=== PATIENT | male | born 1960 | race Caucasian/White ===

== ENCOUNTER 2019-01-22 16:34 | Emergency (ER) | payer MEDICAID, OTHER ==
[~2019-01-22] VITALS: Ht 182.9 cm; Wt 90.3 kg
[2019-01-22] MEDS ORDERED: ALPRAZOLAM TAB 0.5MG (17:00)
[2019-01-22] MEDS ORDERED: HYDROMORPHONE 1 MG/1 ML DISP.SYRIN ONE ×2 (17:16→18:51)
[2019-01-22] MEDS ORDERED: ONDANSETRON HCL/PF 4 MG/2 ML VIAL ONE (17:16)
[2019-01-22 17:22] LABS: BASOPHILS # (AUTO) 0.1 /CMM (0.0-0.2); BASOPHILS % (AUTO) 1.5 % (0.0-2.0); EOSINOPHILS % (AUTO) 1.2 % (0.0-6.0); HEMATOCRIT 42 % (39-51); HEMOGLOBIN 13.1 g/dL (13.5-17.5); LYMPHOCYTES # (AUTO) 2.3 /CMM (0.8-4.8); LYMPHOCYTES % (AUTO) 29.9 % (20.0-44.0); MEAN CORPUSCULAR HGB CONC 32 g/dl (31.0-36.0); MEAN CORPUSCULAR VOLUME 74 fL (80-96); MONOCYTES # (AUTO) 0.5 /CMM (0.1-1.30); MONOCYTES % (AUTO) 6.6 % (2.0-12.0); NEUTROPHILS # (AUTO) 4.8 /CMM (1.8-8.9); NEUTROPHILS % (AUTO) 60.8 % (43.0-81.0); PLATELET COUNT (AUTO) 246 /CMM (150-450); RED BLOOD CELL COUNT(AUTO) 5.63 MIL/uL (4.5-6.0); WHITE BLOOD COUNT (AUTO) 7.8 K/uL (4.3-11.0)
[2019-01-22 17:29] LABS: CALCIUM, SERUM 8.9 mg/dL (8.5-10.1); CREATININE 1.2 mg/dL (0.6-1.3); POTASSIUM 3.7 mmol/L (3.5-5.1)
[2019-01-22] MEDS ORDERED: IV NS 0.9% 1,000 ML BAG IV ONE (17:30)
[2019-01-22] MEDS ORDERED: IV D5/ 0.9% NACL 1,000 ML IV ONE (17:30)
[2019-01-22] MEDS ORDERED: HYDROMORPHONE INJ 2 MG/ML DISP.SYRIN IV ONE (17:30)
[2019-01-22] MEDS ORDERED: ONDANSETRON HCL/PF 4 MG/2 ML VIAL IVP ONE (17:30)
[2019-01-22 17:40] LABS: ALBUMIN 4.1 g/dL (3.4-5.0); BILIRUBIN,DIRECT 0.1 mg/dL (0.0-0.2); BILIRUBIN,TOTAL 0.6 mg/dL (0.2-1.0); TOTAL PROTEIN, SERUM 7.5 g/dL (6.4-8.2)
--- NOTE | 2019-01-22 17:46 | NUR ---
Pt c/o abdominal pain 05/22 non-radiating "I'm having a porphyria attack". PT AAO4, VSS. DENIES CP, SOB, DIZZINESS, N/V AT THIS TIME. PT SEEN & EVAL'D BY DON GARCIA. MEDICATED ORDERED, PT QUINN WELL. WILL CONT TO MONITOR.
[2019-01-22 18:03] LABS: MAGNESIUM 1.8 mg/dL (1.8-2.4)
--- NOTE | 2019-01-22 18:27 | NUR ---
PT REFUSED CXR, DON GARCIA AWARE.
[2019-01-22] MEDS ORDERED: Testosterone IM (18:33)
--- NOTE | 2019-01-22 18:56 | NUR ---
MEDICATED ORDERED, PT QUINN WELL. [facility]
[2019-01-22] MEDS ORDERED: MORPHINE SULFATE INJ 2 MG/ML DISP.SYRIN IV ONE (19:00)
[2019-01-22] MEDS ORDERED: HYDROMORPHONE INJ 0.5 MG/0.5 ML SYRINGE IV ONE (19:00)
--- NOTE | 2019-01-22 19:22 | NUR ---
PAGED EPIC (MEHRAN BARBOUR)
--- NOTE | 2019-01-22 19:54 | NUR ---
CALLED DR ESTEBAN MORRIS FOR CONSULT; NO ANSWER, LEFT VOICEMAIL.
[2019-01-22] MEDS ORDERED: KETOROLAC TROMETHAMINE INJ 30 MG/ML VIAL ONE (20:49)
[2019-01-22] MEDS ORDERED: KETOROLAC TROMETHAMINE INJ 30 MG/ML VIAL IV ONE (21:00)
[2019-01-22] MEDS ORDERED: IV NS 0.9% 1,000 ML IV PRN (21:59)
[2019-01-22] MEDS ORDERED: MAG HYDROX/AL HYDROX/SIMETH 30 ML UDC PO PRN (22:00)
[2019-01-22] MEDS ORDERED: HYDROCODONE/APAP 5/325MG 1 EACH TABLET PO PRN (22:00)
[2019-01-22] MEDS ORDERED: ONDANSETRON HCL/PF 4 MG/2 ML VIAL IVP PRN (22:00)
[2019-01-22] MEDS ORDERED: Z GUARD REMEDY 2 OZ OINT TP PRN (22:00)
[2019-01-22] MEDS ORDERED: MAGNESIUM HYDROXIDE 30 ML UDC PO PRN (22:00)
[2019-01-22] MEDS ORDERED: ACETAMINOPHEN 325 MG TABLET PO PRN (22:00)
[2019-01-22] MEDS ORDERED: MORPHINE SULFATE INJ 2 MG/ML DISP.SYRIN IV PRN (22:00)
[2019-01-22 22:08] VITALS: BP 127/89
--- NOTE | 2019-01-22 22:09 | NUR ---
PT ABD PAIN 10/20 & QUINN WELL. STS " I FEEL MUCH BETTER ". DENIES CP, SOB, DIZZINESS, N/V AT THIS TIME. WILL CONT TO MONITOR.
[2019-01-22 23:05] LABS: APPEARANCE,URINE Clear (CLEAR); BILIRUBIN,URINE Negative (NEGATIVE); BLOOD, URINE Trace-lysed Ery/uL (NEGATIVE); COLOR,URINE Yellow (YELLOW); KETONES,URINE 15 (NEGATIVE); LEUKOCYTE ESTERASE ,URINE Negative (NEGATIVE); NITRITE, URINE Negative (NEGATIVE); PROTEIN,URINE Negative (NEGATIVE); UGLUCOSE Negative (NEGATIVE); UROBILINOGEN,URINE 0.2 EU/dL (0.2)
[2019-01-22 23:21] LABS: BACTERIA,URINE Few /HPF (None Seen); SQUAMOUS EPITHELIAL CELL,UR Rare /HPF (None Seen)
--- NOTE | 2019-01-22 23:56 | NUR ---
Patient does not wish to proceed with medical care recommended by Dr. King. Patient given information related to possible complications, up to and including , which could occur as a result of leaving the hospital at this time. Patient verbalizes understanding of risks involved due to leaving against medical advice. Patient has signed AMA form.IV removed. Catheter intact and site benign. Pressure and 4x4 applied to site. No bleeding noted.
[2019-01-23] MEDS ORDERED: PANTOPRAZOLE 40 MG TABLET.DR PO SCH (07:30)
== END 2019-01-22 23:59 | disposition left against medical advice (07) ==
LOC: ER 16:35
DX: R10.84 Generalized abdominal pain (principal); E80.20 Unspecified porphyria; I48.0 Paroxysmal atrial fibrillation; Z60.2 Problems related to living alone
CPT/HCPCS: 36415; 74176; 80048; 80076; 81001; 82550; 83690; 83735; 85025; 87081; 93005; 96374; 96375; 96376; 99285; J1170 ×2; J1885; J2405; J7042; 81000-TC; J7030